=== PATIENT | male | born 1990 | race Caucasian/White ===

== ENCOUNTER 2021-10-26 21:56 | Observation (INO) ==
[2021-10-26] MEDS ORDERED: HYDROmorphone 2 MG/1 ML VIAL IV STA (23:05)
[2021-10-26] MEDS ORDERED: SODIUM CHLORIDE 0.9% 1,000 ML IV STA (23:05)
[2021-10-26] MEDS ORDERED: ONDANSETRON 4 MG/2 ML VIAL IV STA (23:05)
[2021-10-26] MEDS ORDERED: PANTOPRAZOLE 40 MG VIAL IV STA (23:05)
[2021-10-26 23:18] LABS: Basophils # 0.1 10*3/uL (0.0-0.2); Basophils % 0.5 % (0.0-0.8); Eosinophils % 0.1 % (0.00-10.9); Hematocrit 58.8 VOL% (42.0-52.0); Hemoglobin 19.1 GM/DL (14.0-18.0); Immature Granulocytes % 0.4 %; Immature Granulocytes Absolute 0.06 #; Lymphocytes # 1.4 10*3/uL (1.4-4.0); Lymphocytes % 9.8 % (21.2-54.2); Mean Corpuscular HGB Conc 32.5 GM/DL (32-36); Mean Corpuscular Volume 87.2 FL (87-102); Mean Platelet Volume 9.9 FL (9.6-12.0); Monocytes % 8.4 % (1.7-12.7); Neutrophils % 80.8 % (38.7-73.9); Platelet Count 366 T/CUMM (130-400); Red Blood Count 6.74 MC/CUMM (3.8-5.5); Red Cell Distribution Width 13.4 % (9.3-17.3); White Blood Count 13.7 T/CUMM (4-12)
[2021-10-26 23:25] LABS: Bilirubin,Urine Negative (Negative); Blood, Urine Negative (Negative); Glucose,Urine (UA) >=500 mg/dL (Negative); Ketones,Urine 20 mg/dL (Negative); Mucus,Urine Many /LPF (Occasional); Nitrite,Urine Negative (Negative); Protein,Urine 100 MG/DL; RBC,Urine 2 /HPF (0-4); Squamous Epithelial Cell,Urine Occasional /HPF (0-10); Urine Appearance CLEAR (Clear); Urine Color Amber (Yellow); Urine Specific Gravity 1.031 (1.001-1.035)
[2021-10-26 23:31] LABS: Alanine Aminotransferase 37 U/L (16-61); Alkaline Phosphatase 87 U/L (45-117); Amylase 45 U/L (25-115); Aspartate Amino Transferase 20 U/L (0-37); Blood Urea Nitrogen 9 MG/DL (7-18); Calcium 9.4 MG/DL (8.5-10.1); Carbon Dioxide 30 MMOL/L (21-32); Estimated Glom Filtration Rate 123 ML/MIN; Glucose 232 MG/DL (74-106); Osmolality,Calculated 271.4 MOS/KG (273-304); Sodium 133 MMOL/L (136-145); Total Protein 8.8 G/DL (6.4-8.2)
[2021-10-27] MEDS ORDERED: LEVOFLOXACIN INJ 750 MG/150 ML PREMIX IV STA (00:14)
[2021-10-27] MEDS ORDERED: methylPREDNISolone SOD SUC 125 MG/2 ML VIAL IV STA (01:19)
[2021-10-27] MEDS ORDERED: GLUCAGON 1 MG VIAL IM PRN (01:53)
[2021-10-27] MEDS ORDERED: ONDANSETRON 4 MG/2 ML VIAL IV PRN (01:53)
[2021-10-27] MEDS ORDERED: POTASSIUM CHLORIDE RIDER 10 MEQ/100 ML PREMIX IV PRN (01:53)
[2021-10-27] MEDS ORDERED: MAGNESIUM SULF RIDER 4 GM/100 ML PREMIX IV PRN (01:53)
[2021-10-27] MEDS ORDERED: hydrALAZINE 20 MG/1 ML VIAL IV PRN (01:53)
[2021-10-27] MEDS ORDERED: MAGNESIUM SULF RIDER 2 GM/50 ML PREMIX IV PRN (01:53)
[2021-10-27] MEDS ORDERED: POTASSIUM CHLORIDE 20 MEQ TABLET PO PRN (01:53)
[2021-10-27] MEDS ORDERED: DEXTROSE 50% 25 GM/50 ML SYRINGE IV PRN (02:22)
[2021-10-27] MEDS ORDERED: HYDROmorphone 2 MG/1 ML VIAL IV PRN (02:29)
[2021-10-27] MEDS: SODIUM CHLORIDE 0.9% 1,000 ML IV SCH ×3 (02:41→18:37)
[2021-10-27] MEDS: metroNIDAZOLE INJ 500 MG/100 ML PREMIX IV SCH ×3 (03:30→18:30)
[2021-10-27 05:46] LABS: Albumin 2.5 G/DL (3.4-5.0); Calcium 7.3 MG/DL (8.5-10.1); Osmolality,Calculated 278.7 MOS/KG (273-304); Potassium 3.6 MMOL/L (3.5-5.1); Risk Ratio 2.78; Thyroid Stimulating Hormone 0.397 uIU/ml (0.358-3.74); Total Protein 6.4 G/DL (6.4-8.2); VLDL Cholesterol 11.4 MG/DL
[2021-10-27 06:05] LABS: Basophils % 0.2 % (0.0-0.8); Eosinophils % 0.1 % (0.00-10.9); Hematocrit 47.8 VOL% (42.0-52.0); Immature Granulocytes % 0.4 %; Immature Granulocytes Absolute 0.04 #; Lymphocytes # 0.6 10*3/uL (1.4-4.0); Lymphocytes % 6.2 % (21.2-54.2); Mean Corpuscular HGB Conc 32.6 GM/DL (32-36); Mean Corpuscular Volume 87.1 FL (87-102); Mean Platelet Volume 10.5 FL (9.6-12.0); Monocytes % 2.3 % (1.7-12.7); Neutrophils % 90.8 % (38.7-73.9); Red Blood Count 5.49 MC/CUMM (3.8-5.5); Red Cell Distribution Width 13.2 % (9.3-17.3)
[2021-10-27 06:14] LABS: Hemoglobin 15.6 GM/DL (14.0-18.0); Platelet Count 252 T/CUMM (130-400); White Blood Count 9.2 T/CUMM (4-12)
[2021-10-27 06:19] LABS: Lymphocytes 7 % (20-55); Platelet Estimate Adequate; Segmented Neutrophils 92 % (50-85); Total Cells Counted 100
[2021-10-27] MEDS: INSULIN REGULAR 100 UNIT/ML SUBCUT SCH ×2 (08:06→12:57)
[2021-10-27] MEDS ORDERED: methylPREDNISolone SOD SUC 40 MG/1 ML VIAL ONE (08:52)
[2021-10-27] MEDS ORDERED: LEVOFLOXACIN INJ 500 MG/100 ML PREMIX IV ONE (08:52)
[2021-10-27] MEDS ORDERED: methylPREDNISolone SOD SUC 40 MG/1 ML VIAL IV STA (09:00)
[2021-10-27] MEDS: PANTOPRAZOLE 40 MG VIAL IV SCH (09:00)
[2021-10-27] MEDS ORDERED: ALPRAZolam 0.5 MG TABLET PO PRN (10:05)
[2021-10-27] MEDS: INSULIN LISPRO 100 UNIT/ML SUBCUT SCH ×2 (17:32→21:16)
[2021-10-27] MEDS ORDERED: INSULIN LISPRO 100 UNIT/ML SUBCUT SCH (18:00)
[2021-10-28] MEDS: SODIUM CHLORIDE 0.9% 1,000 ML IV SCH ×2 (07:30→08:16)
[2021-10-28] MEDS: INSULIN LISPRO 100 UNIT/ML SUBCUT SCH (07:45)
[2021-10-28] MEDS: metroNIDAZOLE INJ 500 MG/100 ML PREMIX IV SCH (08:18)
[2021-10-28] MEDS: PANTOPRAZOLE 40 MG VIAL IV SCH (08:49)
[2021-10-28] MEDS ORDERED: methylPREDNISolone SOD SUC 40 MG/1 ML VIAL IV SCH (09:00)
[2021-10-28] MEDS ORDERED: LEVOFLOXACIN INJ 500 MG/100 ML PREMIX IV SCH (09:00)
[2021-10-28] MEDS ORDERED: predniSONE 20 MG TABLET PO SCH (09:00)
[2021-10-28 11:16] VITALS: BP 110/76
[2021-10-30] MEDS ORDERED: DEXTROSE 10% 250 ML BAG IV PRN (11:00)
== END 2021-10-28 11:00 | disposition home or self-care (01) ==
LOC: N.EDINP 21:56 → N.ED 21:56 → SUATTDRO 10-27 01:53 → N.EDINP 10-28 11:16
PROVIDERS: ADMIT Internal Medicine; ATTEND Internal Medicine